=== PATIENT | female | born 1980 | race Caucasian/White ===

== ENCOUNTER 2020-12-23 10:43 | Emergency (ER) | payer BC, SELFPAY ==
--- NOTE | 2020-12-23 10:48 | ED.GENADULT ---
HPI - General Adult General Chief complaint: Allergic Reaction Stated complaint: allergic reaction on scalp Time Seen by Provider: 12/23/20 10:48 Source: patient Mode of arrival: ambulatory Limitations: no limitations History of Present Illness HPI narrative: 40-year-old female patient presents to the [facility] with complaints of a rash to the scalp for the past 3 days. Patient states she started a new shampoo about a week ago along with an oil treatment think she had a allergic reaction to the well treatment. Patient states her scalp is very itchy and feels some little bumps on there. Patient states she has taken Benadryl for the past couple of days but denies any Benadryl today. Denies any chest pain, shortness of breath or trouble swallowing. Related Data Allergies Allergy/AdvReac Type Severity Reaction Status Date / Time Sulfa (Sulfonamide Allergy Mild Hives Verified 12/23/20 10:58 Antibiotics) Review of Systems Review of Systems: Narrative: CONSTITUTIONAL: Denies fever, chills, or sweats. EYES: Denies visual changes, redness, or discharge. ENT: Denies rhinorrhea, congestion, sore throat, or otalgia. CARDIOVASCULAR: Denies chest pain, palpitations, or edema. RESPIRATORY: Denies cough or dyspnea. GASTROINTESTINAL: Denies abdominal pain, nausea, vomiting, or diarrhea. GENITOURINARY: Denies dysuria or hematuria. SKIN: Positive redness with irritation to the scalp x3 days MUSCULOSKELETAL: Denies back pain, joint pain, or myalgia. NEUROLOGIC: Denies headache, numbness, or weakness. PSYCHIATRIC: Denies anxiety or depression. Exam Narrative: Exam Narrative: GENERAL: Well-appearing, well-nourished, and in no acute distress. HEAD: Normocephalic, atraumatic. EYES: PERRLA and EOMI. ENT: Nares clear, no rhinorrhea or epistaxis. Mucous membranes moist. NECK: Supple. No lymphadenopathy CHEST: Clear to auscultation. No respiratory distress. HEART: Regular rate and rhythm. No murmur heard. Normal peripheral pulses. ABDOMEN: Soft, nontender, nondistended, normal active bowel sounds. EXTREMITIES: Normal range of motion. No edema. SKIN: Warm, dry, patient does appear to have some redness noted to the scalp on exam no obvious blisters or cisneros noted at this time. NEURO: No focal deficits. Alert and oriented x3. Course Vital Signs Vital signs: Vital Signs Temperature 36.8 C 12/23/20 10:55 Pulse Rate 82 12/23/20 10:55 Respiratory Rate 20 12/23/20 10:55 Blood Pressure 126/90 12/23/20 10:55 Pulse Oximetry 100 12/23/20 10:55 Temperature 36.8 C 12/23/20 10:55 Pulse Rate 82 12/23/20 10:55 Respiratory Rate 20 12/23/20 10:55 Blood Pressure 126/90 12/23/20 10:55 Pulse Oximetry 100 12/23/20 10:55 Vital signs reviewed Medical Decision Making Differential Diagnosis Differential Diagnosis: Differential diagnosis: Contact dermatitis, poison david, poison sumac, psoriasis, eczema, allergic reaction, drug reaction, scabies, tinea syphilis, lung disease, viral exanthema, pityriasis, erythema multiforme. Discussed with patient this most likely has some type of contact dermatitis of the scalp. Discussed with patient that we will go ahead and give her a steroid taper to help with the allergic reaction. Discussed with patient she can continue using ice packs on the head to help with the burning pain and itching. Discussed with patient she has worsening symptoms such as chest pain, shortness of breath trouble swallowing I highly recommend that she go the ER right away. Patient verbalized understanding denies any other questions or concerns at this time. Vital Signs Vital Signs: Vital Signs Temperature 36.8 C 12/23/20 10:55 Pulse Rate 82 12/23/20 10:55 Respiratory Rate 20 12/23/20 10:55 Blood Pressure 126/90 12/23/20 10:55 Pulse Oximetry 100 12/23/20 10:55 Temperature 36.8 C 12/23/20 10:55 Pulse Rate 82 12/23/20 10:55 Respiratory Rate 20 12/23/20 10:55 Blood Pressure 126/90 0
[2020-12-23 10:55] VITALS: BP 126/90; PULSE 82; RESP 20; TEMP 36.8; O2SAT 100
== END 2020-12-23 11:15 | disposition home or self-care (01) ==
PROVIDERS: Emergency Provider Nurse Practitioner Family
DX: L24.3 Irritant contact dermatitis due to cosmetics (principal); L23.2 Allergic contact dermatitis due to cosmetics
CPT/HCPCS: 99203; G0463

== ENCOUNTER 2021-09-13 17:37 | Emergency (ER) | payer BC, SELFPAY ==
[2021-09-13 17:52] VITALS: BP 109/68; PULSE 99; RESP 16; TEMP 37.3; O2SAT 99
--- NOTE | 2021-09-13 19:28 | ED.SKABFB ---
HPI - Skin/Abscess/Foreign Bdy General Chief complaint: Skin/Abscess/Foreign Body Stated complaint: rash on knees and elbows Source: patient and RN notes reviewed Mode of arrival: ambulatory History of Present Illness HPI narrative: This is a 41-year-old female who presented to urgent care because family members have recently been diagnosed with crusted scabies. Patient has linear abrasions not sure if is caused by her scratching or actual infection. We will treat based off of contact. The patient denies SOB, CP, palpitation, extremity numbness, lightheadedness, dizziness, constipation, diarrhea, chills, or fever. Related Data Allergies Allergy/AdvReac Type Severity Reaction Status Date / Time Sulfa (Sulfonamide Allergy Mild Hives Verified 12/23/20 10:58 Antibiotics) diphenhydramine Allergy Hallucinati Verified 09/13/21 18:22 [From Benadryl] ng morphine Allergy Vomiting Verified 09/13/21 18:21 Review of Systems Review of Systems: A 14 organ system Review of Systems was performed and pertinent positives included in the HPI, otherwise remaining ROS is negative. [facility] Family History Family History (Updated 09/13/21 @ 19:33 by SHAHRZAD Motta-C) Other Family history non-contributory Exam Narrative: GENERAL: This is a well-nourished, well-developed patient, in no apparent distress. HEAD: normocephalic, atraumatic. EYES: PERRL. Sclera clear/white. Vision is grossly intact. EARS: External ears normal, auditory canals clear and without drainage, TMs normal without perforation. Hearing grossly intact. NOSE: External nose normal with no obvious nasal discharge, nares without redness, no rhinorrhea. THROAT: Mucous membranes moist, posterior pharynx clear. NECK: Neck supple, non-tender without lymphadenopathy, masses or thyromegaly. CARDIOVASCULAR: Regular rate and rhythm without murmurs, gallops, or rubs. RESPIRATORY: Clear to auscultation. Breath sounds equal bilaterally. No wheezes, rales, or rhonchi. GASTROINTESTINAL: Abdomen soft, non-tender, nondistended. Bowel sounds are active. No hepato-splenomegaly, or palpable masses. No guarding. SKIN: With linear abrasions to the lower extremities NEURO: awake, alert, and oriented to person, place and time. There were no obvious focal neurologic abnormalities. Steady gait EXTREMITIES: Normal range of motion. No edema. No calf tenderness. Negative Homans sign bilaterally. BACK: Nontender without deformity or crepitance. No flank tenderness. Course Course Emergency Course: Patient will be treated for scabies with permethrin hydrocortisone lotion Vital Signs Vital signs: Vital Signs Temperature 99.2 F 09/13/21 17:52 Pulse Rate 99 09/13/21 17:52 Respiratory Rate 16 09/13/21 17:52 Blood Pressure 109/68 09/13/21 17:52 Pulse Oximetry 99 09/13/21 17:52 Temperature 99.2 F 09/13/21 17:52 Pulse Rate 99 09/13/21 17:52 Respiratory Rate 16 09/13/21 17:52 Blood Pressure 109/68 09/13/21 17:52 Pulse Oximetry 99 09/13/21 17:52 MDM - Skin/Abscess/Foreign Bdy Differential Diagnosis Differential diagnosis: Likely cellulitis, eczema, insect bites, contact dermatitis and other (Scabies) Discharge Plan Discharge Clinical Impression: Crusted scabies Patient Disposition: Home, Self-Care Condition: Stable Instructions: Antibiotic Form, Permethrin (On the skin), Scabies (ED) Additional Instructions: How is scabies treated? ? Your doctor or nurse can give you a prescription for a medicine that kills the mites that cause scabies. A medicine that is often used is called permethrin (brand names: Elimite, Acticin). Permethrin comes in a cream or lotion that you put on your skin. You must use the medicine exactly how the doctor or nurse tells you to. Otherwise it might not work. A medicine that comes in a pill called ivermectin can also cure scabies. You need a prescription for this medicine. If you are being treated for scabies, the doctor o
== END 2021-09-13 19:35 | disposition home or self-care (01) ==
PROVIDERS: Emergency Provider Nurse Practitioner
DX: B86 Scabies (principal)
CPT/HCPCS: 99213; G0463

== ENCOUNTER 2022-01-11 16:38 | Emergency (ER) | payer BC, SELFPAY ==
--- NOTE | ~2022-01-11 | XR_ITS ---
XR hand LT min 3V DATE: 01/11/2022 16:58 INDICATION: Injury. Second digit pain extending into the hand. TECHNIQUE: 3 views COMPARISON: None FINDINGS: No fracture or dislocation, periosteal reaction or bone destruction, erosive change or yared drocalcinosis. IMPRESSION: Negative Reviewed, dictated and finalized at location A. IMPRESSION: Negative
[2022-01-11 16:44] VITALS: BP 115/77; PULSE 91; RESP 16; TEMP 36.9; O2SAT 100
--- NOTE | 2022-01-11 16:54 | ED.UPPEXIN ---
HPI - Extremity Injury (Upper) General Chief Complaint: Extremity Injury, Upper Stated Complaint: left hand injury Time Seen by Provider: 01/11/22 16:54 Source: patient and RN notes reviewed History of Present Illness HPI narrative: Patient is a 41-year-old female who presents the urgent care with complaints of left index and thumb pain radiating to the left hand. Patient states that she got her finger/left hand stuck in an electric mixer on 31 December. Patient states that she went to [place] [facility] and they gave her an tetanus shot for the small laceration to the index finger and splinted it with a metal splint. Patient states that did not do x-rays and she has continued to have increased pain. Patient states she been taking an excessive amount of ibuprofen. No other acute complaints or injuries. No acute distress noted. Patient aware of the plan of care. Some parts of this dictation were generated by voice recognition software and may contain typographical and/or grammatical inaccuracies. Related Data Allergies Allergy/AdvReac Type Severity Reaction Status Date / Time Sulfa (Sulfonamide Allergy Mild Hives Verified 12/23/20 10:58 Antibiotics) diphenhydramine Allergy Hallucinati Verified 09/13/21 18:22 [From Benadryl] ng morphine Allergy Vomiting Verified 09/13/21 18:21 Review of Systems Review of Systems: CONSTITUTIONAL: Denies fever, chills, or sweats. EYES: Denies visual changes, redness, or discharge. ENT: Denies rhinorrhea, congestion, sore throat, or otalgia. CARDIOVASCULAR: Denies chest pain, palpitations, or edema. RESPIRATORY: Denies cough or dyspnea. GASTROINTESTINAL: Denies abdominal pain, nausea, vomiting, or diarrhea. GENITOURINARY: Denies dysuria or hematuria. SKIN: Denies rash or itching. MUSCULOSKELETAL: Reports of left index, thumb, left hand pain NEUROLOGIC: Denies headache, numbness, or weakness. All other systems reviewed are negative, except as documented in HPI. [facility] Family History Family History (Updated 09/13/21 @ 19:33 by AMA Motta) Other Family history non-contributory Comments At the time of my signature, I reviewed and agree with the nursing past medical, surgical, social, and family history. There is no relevant family history pertinent to the patient complaint. Exam Narrative: GENERAL: This is a well-nourished, well-developed patient, in no apparent distress. HEAD: normocephalic, atraumatic. EYES: PERRL. Sclera clear/white. Vision is grossly intact. EARS: External ears normal NOSE: External nose normal with no obvious nasal discharge, nares without redness, no rhinorrhea. THROAT: Mucous membranes moist NECK: Neck supple CARDIOVASCULAR: Regular rate and rhythm without murmurs, gallops, or rubs. RESPIRATORY: Clear to auscultation. B SKIN: 1 cm approximated linear healing laceration to the left index finger to the radial aspect. Warm, intact with no suspicious lesions or rash, good texture and turgor. NEURO: awake, alert, and oriented to person, place and time. There were no obvious focal neurologic abnormalities. EXTREMITIES: Range of motion to left hand not tested due to pain. Mild to moderate tenderness to the left index finger without notable ecchymosis, erythema or edema. Positive strong left radial pulse with capillary refill less than 2 seconds. Course Course Level of Care: Express Care Visit Vital Signs Vital signs: Vital Signs Temperature 98.4 F 01/11/22 16:44 Pulse Rate 91 01/11/22 16:44 Respiratory Rate 16 01/11/22 16:44 Blood Pressure 115/77 01/11/22 16:44 Pulse Oximetry 100 01/11/22 16:44 Temperature 98.4 F 01/11/22 16:44 Pulse Rate 91 01/11/22 16:44 Respiratory Rate 16 01/11/22 16:44 Blood Pressure 115/77 01/11/22 16:44 Pulse Oximetry 100 01/11/22 16:44 Reviewed MDM - Extremity Injury (Upper) MDM Narrative Medical decision making narrative: Reviewed x-ray results with the patient. She is aware that x-ray
== END 2022-01-11 17:35 | disposition home or self-care (01) ==
PROVIDERS: Emergency Provider Nurse Practitioner Family
DX: S63.611A Unspecified sprain of left index finger, initial encounter (principal); W27.4XXA Contact with kitchen utensil, initial encounter
CPT/HCPCS: 73130; 99213; G0463

== ENCOUNTER 2023-01-07 12:09 | Emergency (ER) | payer BC, SELFPAY ==
[2023-01-07 12:16] VITALS: BP 133/106; PULSE 75; RESP 20; TEMP 36.7; O2SAT 98
--- NOTE | 2023-01-07 12:40 | ED.GENADULT ---
HPI - General Adult General Chief complaint: Wound/Laceration Stated complaint: remove stitches from knee History of Present Illness HPI narrative: patient here for suture removal. 17 sutures placed to left knee 10 days ago. no redness or edema noted some scabbing and crusting to area no drainage edges well approximated Related Data Allergies Allergy/AdvReac Type Severity Reaction Status Date / Time Sulfa (Sulfonamide Allergy Mild Hives Verified 12/23/20 10:58 Antibiotics) diphenhydramine Allergy Hallucinati Verified 09/13/21 18:22 [From Benadryl] ng morphine Allergy Vomiting Verified 09/13/21 18:21 Review of Systems Review of Systems: CONSTITUTIONAL: Denies fever, chills, or sweats. EYES: Denies visual changes, redness, or discharge. ENT: Denies rhinorrhea, congestion, sore throat, or otalgia. CARDIOVASCULAR: Denies chest pain, palpitations, or edema. RESPIRATORY: Denies cough or dyspnea. GASTROINTESTINAL: Denies abdominal pain, nausea, vomiting, or diarrhea. GENITOURINARY: Denies dysuria or hematuria. SKIN: Denies rash or itching. MUSCULOSKELETAL: Denies back pain, joint pain, or myalgia. NEUROLOGIC: Denies headache, numbness, or weakness. PSYCHIATRIC: Denies anxiety or depression. [facility] Family History Family History (Updated 09/13/21 @ 19:33 by SHAHRZAD Motta-Wander) Other Family history non-contributory Comments At time of signature, agree with nursing past medical, surgical, social and family history. There is no relevant family history pertinent to the presenting complaint Exam Narrative: GENERAL: Well-appearing, well-nourished, and in no acute distress. HEAD: Normocephalic, atraumatic. EYES: PERRLA and EOMI. ENT: Nares clear, no rhinorrhea or epistaxis. Mucous membranes moist. NECK: Supple. CHEST: Clear to auscultation. No respiratory distress. HEART: Regular rate and rhythm. No murmur heard. Normal peripheral pulses. ABDOMEN: Soft, nontender, nondistended, normal active bowel sounds. EXTREMITIES: Normal range of motion. No edema. SKIN: Warm, dry, no rash.[address] to left knee no redness or edema no drainage edges well approximated no concern for infetion NEURO: No focal deficits. Alert and oriented x3. [place] Coma Scale Eye Opening: Spontaneous 4 [place] Coma Scale Motor: Obeys Commands 6 [place] Coma Scale Verbal: Oriented 5 [place] Coma Scale Total 15 Course Course Level of Care: Express Care Visit Vital Signs Vital signs: Vital Signs Temperature 36.7 C 01/07/23 12:16 Pulse Rate 75 01/07/23 12:16 Respiratory Rate 20 01/07/23 12:16 Blood Pressure 133/106 H 01/07/23 12:16 Pulse Oximetry 98 01/07/23 12:16 Oxygen Delivery Room Air 01/07/23 12:16 Temperature 36.7 C 01/07/23 12:16 Pulse Rate 75 01/07/23 12:16 Respiratory Rate 20 01/07/23 12:16 Blood Pressure 133/106 H 01/07/23 12:16 Pulse Oximetry 98 01/07/23 12:16 Oxygen Delivery Room Air 01/07/23 12:16 Please ISAURA schedule a followup visit with your personal physician for further evaluation and treatment. Including recheck and discussion of your blood pressure. If your symptoms persist, change or worsen significantly before you can contact your personal physician then please, without delay, go to the emergency department for further evaluation Procedures Other Procedure Procedure 1: Other Procedure: 17 sutures removed from left knee edges well approximated no drainage no redness and no edema patient tolerated well steri strips applied Medical Decision Making Vital Signs Vital Signs: Vital Signs Temperature 36.7 C 01/07/23 12:16 Pulse Rate 75 01/07/23 12:16 Respiratory Rate 20 01/07/23 12:16 Blood Pressure 133/106 H 01/07/23 12:16 Pulse Oximetry 98 01/07/23 12:16 Oxygen Delivery Room Air 01/07/23 12:16 Temperature 36.7 C 01/07/23 12:16 Pulse Rate 75 01/07/23 12:16 Respiratory Rate 20 01/07/23 12:16 Blood Pressure
== END 2023-01-07 12:51 | disposition home or self-care (01) ==
PROVIDERS: Emergency Provider Nurse Practitioner Family
DX: S81.012A Laceration without foreign body, left knee, initial encounter (principal); X58.XXXA Exposure to other specified factors, initial encounter
CPT/HCPCS: 99211; G0463